=== PATIENT | male | born 1955 | race Caucasian/White ===

== ENCOUNTER 2018-03-30 13:02 | Emergency (ER) | payer OTHER ==
--- NOTE | 2018-03-30 14:04 | ER Document Report ---
ED Medical Screen (RME) - General Chief Complaint: Abnormal Lab Results Stated Complaint: POTASSIUM IS HIGH Time Seen by Provider: 03/30/18 13:08 TRAVEL OUTSIDE OF THE [place] IN LAST 30 DAYS: No - Related Data Allergies/Adverse Reactions: No Known Allergies Allergy (Verified 03/30/18 13:04) Physical Exam - Vital signs Vitals: Temp Pulse Resp BP Pulse Ox 97.9 F 84 16 160/70 H 98 03/30/18 13:04 03/30/18 13:04 03/30/18 13:04 03/30/18 13:04 03/30/18 13:04 Course - Vital Signs Vital signs: Temp Pulse Resp BP Pulse Ox 97.9 F 84 16 160/70 H 98 03/30/18 13:04 03/30/18 13:04 03/30/18 13:04 03/30/18 13:04 03/30/18 13:04 Doctor's Discharge - Discharge Referrals: POLA BARRETO MD [Primary Care Provider] - Follow up as needed
--- NOTE | 2018-03-30 14:12 | ER Document Report ---
ED General - General Chief Complaint: Abnormal Lab Results Stated Complaint: POTASSIUM IS HIGH Time Seen by Provider: 03/30/18 13:08 Notes: This is a 62-year-old male to the emergency department for evaluation of possible abnormal labs. We will had routine labs done. Was called today for a panic potassium. Patient denies any symptoms at this time and was told to come here TRAVEL OUTSIDE OF THE [place] IN LAST 30 DAYS: No - Related Data Allergies/Adverse Reactions: No Known Allergies Allergy (Verified 03/30/18 13:04) Past Medical History - General Information source: POA - Power of [employer] Product [employer] - Social History Smoking Status: Current Every Day Smoker Frequency of alcohol use: None Drug Abuse: None Lives with: Spouse/Significant other Family History: Reviewed & Not Pertinent Patient has suicidal ideation: No Patient has homicidal ideation: No - Past Medical History Cardiac Medical History: Reports: Hx Hypercholesterolemia, Hx Hypertension Renal/ Medical History: Denies: Hx Peritoneal Dialysis GI Medical History: Reports: Hx Gastroesophageal Reflux Disease Past Surgical History: Reports: Hx Orthopedic Surgery - right rotator cuff, bilateral knee replacments, Hx Tonsillectomy Review of Systems - Review of Systems Notes: Constitutional: denies: Chills, Diaphoresis, Fever, Malaise, Weakness EENT: denies: Eye discharge, Blurred vision, Tearing, Double vision, Nose congestion, Nose discharge, Throat swelling, Mouth pain Cardiovascular: denies: Palpitations, Heart racing, Orthopnea, Dyspnea, Chest pain Respiratory: denies: Cough, Hurts to breathe, Wheezing, Shortness of breath Gastrointestinal: denies: Abdominal pain, Diarrhea, Nausea, Vomiting, Black stools, bright red blood in stool Genitourinary: denies: Burning, Dysuria, Discharge, Frequency, Flank pain, Hematuria Musculoskeletal: denies: Joint pain, Joint swelling, Muscle pain, Muscle stiffness, back pain Hematologic/Lymphatic: denies: Anemia, Easy bleeding, Easy bruising, Blood clots Neurological/Psychological: denies: Confusion, Dementia, Depression, Loss of consciousness Skin: No lesions, no masses, no skin breakdown, no abscesses Physical Exam - Vital signs Vitals: Temp Pulse Resp BP Pulse Ox 97.9 F 84 16 160/70 H 98 03/30/18 13:04 03/30/18 13:04 03/30/18 13:04 03/30/18 13:04 03/30/18 13:04 Interpretation: Normal - General General appearance: Appears well, Alert - HEENT Head: Normocephalic, Atraumatic Eyes: Normal Pupils: PERRL - Respiratory Respiratory status: No respiratory distress Chest status: Nontender Breath sounds: Normal Chest palpation: Normal - Cardiovascular Rhythm: Regular Heart sounds: Normal auscultation Murmur: No - Abdominal Inspection: Normal Distension: No distension Bowel sounds: Normal Tenderness: Nontender Organomegaly: No organomegaly - Back Back: Normal, Nontender - Extremities General upper extremity: Normal inspection, Nontender, Normal color, Normal ROM , Normal temperature General lower extremity: Normal inspection, Nontender, Normal color, Normal ROM , Normal temperature, Normal weight bearing. No: Marco's sign - Neurological Neuro grossly intact: Yes Cognition: Normal Orientation: AAOx4 [place] Coma Scale Eye Opening: Spontaneous [place] Coma Scale Verbal: Oriented [place] Coma Scale Motor: Obeys Commands Trudy Coma Scale Total: 15 Speech: Normal Motor strength normal: LUE, RUE, LLE, RLE Sensory: Normal - Psychological Associated symptoms: Normal affect, Normal mood - Skin Skin Temperature: Warm Skin Moisture: Dry Skin Color: Normal Course - Re-evaluation Re-evalutation: 03/30/18 14:53 Patient's labs are completely normal. At this time will presume a laboratory error. Will DC at this time. Laboratory 03/30/18 14:18 Sodium 137.5 Potassium 4.0 Chloride 103 Carbon Dioxide 27 Anion Gap 8 BUN 13 Creatinine 0.90 Est GFR ( Amer) > 60 Est GFR (Non-Af Amer) > 60 Glucose 83 Calcium 10.3 H Total Bilirubin 0.8 Direct Bilirubin 0.5 H Neonat Total Bilirubin Not Reportable Neonat Direct Bilirubin Not Reportable Neonat Indirect Bili Not Reportable AST 25 ALT 30 Alkaline Phosphatase 49 Total Protein 7.5 Albumin 4.4 - Vital Signs Vital signs: Temp Pulse Resp BP Pulse Ox 97.9 F 84 16 160/70 H 98 03/30/18 13:04 03/30/18 13:04 03/30/18 13:04 03/30/18 13:04 03/30/18 13:04 - Laboratory Result Diagrams: 03/30/18 14:18 Laboratory results interpreted by me: 03/30/18 14:18 Calcium 10.3 H Direct Bilirubin 0.5 H Discharge - Discharge Clinical Impression: Well adult exam Condition: Good Disposition: HOME, SELF-CARE Instructions: Normal Exam and Workup ([facility]) Additional Instructions: Your labs look completely normal. This must of been a laboratory error. Please follow-up with your regular doctor. We will discharge at this time. A copy of your labs have been provided. Referrals: POLA BARRETO MD [NO LOCAL MD] - Follow up as needed
[2018-03-30 14:49] LABS: ALANINE AMINOTRANSFERASE 30 U/L (21-72); ALBUMIN 4.4 g/dL (3.5-5.0); ALKALINE PHOSPHATASE 49 U/L (38-126); ANION GAP 8 (5-19); ASPARTATE AMINO TRANSFERASE 25 U/L (17-59); BILIRUBIN,DIRECT 0.5 mg/dL (0.0-0.4); BILIRUBIN,TOTAL 0.8 mg/dL (0.2-1.3); BLOOD UREA NITROGEN 13 mg/dL (7-20); CALCIUM 10.3 mg/dL (8.4-10.2); CARBON DIOXIDE 27 mmol/L (22-30); CHLORIDE 103 mmol/L (98-107); GLUCOSE 83 mg/dL (75-110); SODIUM 137.5 mmol/L (137-145); TOTAL PROTEIN 7.5 g/dL (6.3-8.2)
[2018-03-30 15:21] VITALS: BP 133/79
--- NOTE | 2018-03-30 17:01 | EKG REPORT ---
SEVERITY:- BORDERLINE ECG - SINUS RHYTHM PROBABLE LEFT ATRIAL ABNORMALITY BORDERLINE T ABNORMALITIES, INFERIOR LEADS : Confirmed by: Karie Gore MD 30-Mar-2018 17:00:38
== END 2018-03-30 15:31 | disposition home or self-care (01) ==
LOC: ER 13:02
DX: Z03.89 Encounter for observation for other suspected diseases and conditions ruled out (principal); I10 Essential (primary) hypertension; F17.200 Nicotine dependence, unspecified, uncomplicated
CPT/HCPCS: 36415; 80053; 93005; 93010; 99283

== ENCOUNTER → 2020-04-17 | Outpatient (CLI) | payer MEDICARE, OTHER ==
--- NOTE | 2020-04-18 15:52 | Pulmonary Function Test ---
Pulmonary Function Test Date of Procedure:: 04/17/20 INDICATION:: Dyspnea Referring Provider: Shayla Lazcano PA-C Puff Ironer: Laurence Hoyt [employer], [employer] - Report Spirometry: Spirometry: pre-FVC: 3.90 L 101% post-FVC: 3.78 L 98% pre-FEV:1 2.51 L 82% post-FEV1: 2.56 L 84% pre-FEV1/FVC %:64 post-FEV1/FVC%: 66 predicted: [79 [id number]%:1.15 L 37% [id number]%:1.41 L 45% Lung Volume: Total lung capacity: 6.15 L 101% Vital capacity: 3.90 L 101% Inspiratory capacity: 2.83 L FRC N2: 3.32 L 105% ERV: 0.32 L RV: 2.25 L 96% RV/TLC %:: 37 predicted 39 Impression: Mild obstructive ventilatory defect. Mild response to bronchodilator therapy. No restrictive ventilatory defect. No hyperinflation. No air trapping.
== END ==
LOC: RT 11:43
PROVIDERS: ATTEND Physician Assistant
DX: R06.2 Wheezing (principal)
CPT/HCPCS: 94060; 94727

== ENCOUNTER → 2020-05-15 | Outpatient (CLI) | payer MEDICARE, OTHER ==
--- NOTE | 2020-05-15 16:28 | NEURO WORKBENCH EEG REPORT ---
EEG Report Patient: Josue Vicente ID: [id number] Referring Doctor: Bashir Alvarez MD DOS: 05/15/2020 Medications: amlodipine, metoprolol, aspirin, crestor, proair, albuterol, HCTZ, requip, omeprazole History This is a 64 year old left handed male with a history of hypertension, RLS, knee replacement, shoulder surgery. He had an episode after drying his car where he extended his left arm, body jerked, fell to the ground, sat up and was confused. This EEG was requested for possible seizure. EEG Interpretation This EEG was recorded in the awake and drowsy states. The awake EEG is characterized by a well-organized background with a well-developed and reactive posterior dominant rhythm of 9 Hz. The remainder of the background was characterized by a combination of alpha with some beta frequencies. There was intermittent polymorphic theta slowing occasionally in the bilateral independent temporal regions within acceptable limits for age. Drowsiness was characterized by slowing of the background rhythms. Photic stimulation resulted in a moderate driving response. There were no epileptiform abnormalities. The EKG showed a regular rhythm in the 60s-70s. EEG Classification * Normal EEG Impression This EEG is within normal limits for age. INTERPRETING NEUROLOGIST: Dianne Buck MD, FRCPC Board Certified in Neurology, with special qualification in Child Neurology, and in Clinical Neurophysiology [facility]
== END ==
LOC: NEURO 07:42
PROVIDERS: ATTEND Pediatrics
DX: R55 Syncope and collapse (principal)
CPT/HCPCS: 95819